=== PATIENT | female | born 1955 | race Caucasian/White ===

== ENCOUNTER → 2019-06-12 | Outpatient (CLI) | payer OTHER | LOC: HYPER 05-30 08:01 → EDBD 08:00 → HYPER 08:00 | DX: R60.9 Edema, unspecified (principal); I63.531 Cerebral infarction due to unspecified occlusion or stenosis of right posterior cerebral artery; E78.2 Mixed hyperlipidemia; E89.0 Postprocedural hypothyroidism; I10 Essential (primary) hypertension; I70.90 Unspecified atherosclerosis; M79.662 Pain in left lower leg; M79.661 Pain in right lower leg; M85.80 Other specified disorders of bone density and structure, unspecified site; F32.9 Major depressive disorder, single episode, unspecified; Z90.710 Acquired absence of both cervix and uterus; Z86.73 Personal history of transient ischemic attack (TIA), and cerebral infarction without residual deficits ==

== ENCOUNTER → 2019-06-27 | Outpatient (CLI) | payer OTHER | LOC: EDBD 10:15 → HYPER 10:15 | DX: I89.0 Lymphedema, not elsewhere classified (principal); R60.9 Edema, unspecified; I63.531 Cerebral infarction due to unspecified occlusion or stenosis of right posterior cerebral artery; E78.2 Mixed hyperlipidemia; E89.0 Postprocedural hypothyroidism; I70.90 Unspecified atherosclerosis; I10 Essential (primary) hypertension; M85.80 Other specified disorders of bone density and structure, unspecified site; F32.9 Major depressive disorder, single episode, unspecified; Z90.710 Acquired absence of both cervix and uterus ==